=== PATIENT | female | born 1990 | race Two or more races ===

== ENCOUNTER → 2025-05-13 | Outpatient (CLI) | payer MEDICAID, SELFPAY ==
[2025-05-12 09:26] LABS: HCG Qualitative,Urine Negative
--- NOTE | 2025-05-13 09:00 | XR_ITS ---
Examination: MRI chest with intravenous contrast, Date and time of exam: May 13, 2025 0924 hours INDICATIONS: Palpable lump posterior lateral lower ribs noticed beginning one year ago Technique: Multiple axial sagittal and coronal images of the chest have been obtained with the Siemens high-resolution 1.5 [employer] MRI scanner. Images obtained include T2-weighted fat-suppressed sagittal sections, TR 3500, TE 46, T2 weighted coronal fat suppressed images, TR 3050, TE 84, T2-weighted transverse fat suppressed images, TR 3260, TE 63, proton density transverse images, TR 4720 TE 46, and T1 weighted coronal images, TR 560, TE 13. Intravenous administration 14 cc gadolinium Findings: Localized skin thickening at the palpable marker site posterior lower right chest No enhancing subcutaneous soft tissue mass Heart is not enlarged No mediastinal lymphadenopathy No pleural disease No liver or splenic lesion No hydronephrosis IMPRESSION: Localized skin thickening at the palpable marker site posterior lower right chest Recommend ultrasound soft tissue at the area concern follow-up to exclude lipoma
== END | disposition home or self-care (01) ==
LOC: SMRI 08:46
DX: R23.4 Changes in skin texture (principal); Z32.00 Encounter for pregnancy test, result unknown
CPT/HCPCS: 71551; 81025; A9579